=== PATIENT | female | born 1950 | race Caucasian/White ===

== ENCOUNTER 2017-06-30 21:58 | Emergency (ER) | payer OTHER ==
[~2017-06-30] VITALS: Ht 154.9 cm; Wt 72.3 kg
[~2017-06-30 21:58] MED LIST: ADVAIR HFA120 INHALA IH; ASPIR-LOW81 MG PO; ASPIRIN325 MG PO; ASPIRIN81 M1 PO; CIPROFLOXACIN500 M1 PO; CLEOCIN150 MG PO; COUMADIN,JANTOVE5 MG PO; COUMADIN5 MG PO; DYAZIDE, MA1 CAPSULE PO; FOLBIC RF TABL1 EACH PO; GLIMEPIRIDE1 MG PO; HCTZ/TRIAMTERENE; LASIX20 MG PO; LEVAQUIN750 MG PO; LISINOPRIL20 MG PO; LOPRESSOR100 M1 PO; Lasix PO; METOPROLOL TAR100 MG PO; METOPROLOL TART25 MG PO; MUCINEX600 MG PO; NICOTINE PATCH1 EAC2 TD; NITROSTAT0.4 MG SL; Nitrostat,NitroQuick SL; PAXIL2 MG/ML PO; PAXIL20 MG PO; PLAVIX75 MG PO; PRAVASTATIN SOD20 MG PO; PRAVASTATIN SOD40 MG PO; SIMVASTATIN20 MG PO; SPIRIVA RESPIMAT4 GM IH; TENORMIN100 MG PO; VITAMIN B; VITAMIN B CO1 TABLET PO; VITAMIN B12; Xanax PO; ZESTRIL2.5 MG PO; [UNRECOGNIZED DRUG - OTHER] PO
[2017-06-30] MEDS ORDERED: ELIMITE 5% CREA60 GM TP (23:14)
[2017-06-30] MEDS ORDERED: CLEOCIN150 MG PO (23:14)
[2017-06-30] MEDS ORDERED: RID COMPLETE 11 EACH TP (23:14)
[2017-06-30] MEDS ORDERED: ATARAX,VISTARIL25 MG PO (23:15)
[2017-06-30 23:34] VITALS: BP 133/79
== END 2017-06-30 23:35 | disposition home or self-care (01) ==
LOC: EME 21:58 → RME 21:58
DX: B86 Scabies (principal); B85.0 Pediculosis due to Pediculus humanus capitis; R68.83 Chills (without fever); Z88.0 Allergy status to penicillin; F17.200 Nicotine dependence, unspecified, uncomplicated
CPT/HCPCS: 99281; 99283; Q0177

== ENCOUNTER 2017-09-28 12:35 | Inpatient (IN) | payer OTHER ==
[~2017-09-28] VITALS: Ht 154.9 cm; Wt 73.4 kg
[~2017-09-28 12:35] MED LIST changes: +ATARAX,VISTARIL25 MG PO; +ELIMITE 5% CREA60 GM TP; +RID COMPLETE 11 EACH TP
[2017-09-28 14:29] LABS: BASOPHIL COUNT 0.1 K/uL (0-0.1); EOSINOPHIL (%) 3.9 % (0-5); EOSINOPHIL COUNT 0.2 K/uL (0-0.3); HEMATOCRIT 35.7 % (36.0-46.0); IMMATURE GRANULOCYTE (%) 0.4 % (0.0-0.7); INSTRUMENT ABS NEUTROPHIL CT 3.3 K/uL; LYMPHOCYTE COUNT 0.7 K/uL (1.0-2.8); MCH 28.4 PG (29.0-34.0); MCHC 31.9 G/DL (30.0-36.0); MCV 88.8 FL (83-99); MEAN PLAT.VOLUME 10.5 uM^3 (9.5-12.4); MONOCYTE (%) 7.9 % (3-12); MONOCYTE COUNT 0.4 K/uL (0-0.8); NEUTROPHIL (%) 71.2 % (45-76); NEUTROPHIL COUNT 3.3 K/uL (1.8-6.4); PLATELET COUNT 194 K/uL (156-360); RBC DIS.WIDTH-CV 15.7 % (11.8-14.6); RBC DIS.WIDTH-SD 51.4 % (39-53); RED BLOOD COUNT 4.02 M/uL (3.80-5.20); WHITE BLOOD COUNT 4.6 K/uL (4.1-10.2)
[2017-09-28 14:38] LABS: CHLORIDE 109 mEq/L (99-109); POTASSIUM 3.5 mEq/L (3.7-5.4); SODIUM 145 mEq/L (136-147)
[2017-09-28 14:39] LABS: INTER. NORMALIZED RATIO 1.8; MAGNESIUM 1.2 mg/dL (1.3-2.7); PROTHROMBIN TIME 20.4 SEC (10.2-12.9)
[2017-09-28 14:41] LABS: GLUCOSE 105 mg/dL (70-99)
[2017-09-28 14:42] LABS: ANION GAP 11 MEQ/L (2-14); TOTAL BILIRUBIN 0.9 mg/dL (0.0-1.0)
[2017-09-28 14:44] LABS: ALKALINE PHOSPHATASE 55 IU/L (3-129); GFR ESTIMATE (CALCULATED) > 59 mL/min/
[2017-09-28 14:45] LABS: UREA NITROGEN (BUN) 17 mg/dL (9-23)
[2017-09-28 14:50] LABS: TROP-I INTERPRETATION NEGATIVE; TROPONIN-I < 0.01 ng/mL (0.0-0.30)
[2017-09-28] MEDS ORDERED: SPIRIVA RESPIMAT4 GM IH (17:02)
[2017-09-28] MEDS ORDERED: ADVAIR HFA120 INHALA IH (17:03)
[2017-09-28] MEDS ORDERED: DYAZIDE, MA1 CAPSULE PO (17:11)
[2017-09-28] MEDS ORDERED: IRON325 M1 PO (17:14)
[2017-09-28] MEDS ORDERED: LOPRESSOR50 MG PO (17:19)
[2017-09-28 17:23] LABS: ADD MIUA? YES; BILIRUBIN NEGATIVE; BLOOD NEGATIVE; COLOR AMBER ((YELLOW)); GLUCOSE (STRIP) NEGATIVE; KETONES 5; LEUKOCYTES NEGATIVE; NITRITE NEGATIVE; PROTEIN (STRIP) 30; SPECIFIC GRAVITY 1.019 (1.000-1.030)
[2017-09-28 17:39] LABS: BACTERIA RARE /HPF; EPITHELIAL CELLS 1+ /HPF; MUCUS TRACE /LPF; RED BLOOD CELLS 0-5 /HPF (0-5); UCUL ADDED? NO; WHITE BLOOD CELLS 0-5 /HPF (0-5)
[2017-09-28 20:45] VITALS: BP 167/78
== END 2017-09-29 04:58 | disposition left against medical advice (07) | DRG 309 ==
LOC: EME 12:35 → EDOF 15:57 → ENRESERV 15:58 → 4EAST 19:55
PROVIDERS: Emergency Medicine
DX: I48.2 Chronic atrial fibrillation (principal); R00.0 Tachycardia, unspecified; Z91.14 Patient's other noncompliance with medication regimen; R45.851 Suicidal ideations; I12.9 Hypertensive chronic kidney disease with stage 1 through stage 4 chronic kidney disease, or unspecified chronic kidney disease; E11.22 Type 2 diabetes mellitus with diabetic chronic kidney disease; N18.3 Chronic kidney disease, stage 3 (moderate); I25.10 Atherosclerotic heart disease of native coronary artery without angina pectoris; J43.9 Emphysema, unspecified; R29.6 Repeated falls; M25.512 Pain in left shoulder; M25.551 Pain in right hip; M25.552 Pain in left hip; M79.631 Pain in right forearm; R55 Syncope and collapse; D64.9 Anemia, unspecified; F17.210 Nicotine dependence, cigarettes, uncomplicated; E78.00 Pure hypercholesterolemia, unspecified; I25.2 Old myocardial infarction; Z86.73 Personal history of transient ischemic attack (TIA), and cerebral infarction without residual deficits; F32.9 Major depressive disorder, single episode, unspecified; Z79.01 Long term (current) use of anticoagulants; Z91.81 History of falling; Z95.5 Presence of coronary angioplasty implant and graft
CPT/HCPCS: 71020; 72192; 73030; 73090; 80048; 80053; 81003; 83735; 84484; 85025; 85027; 85610; 93005; 93880; 99281; 99283

== ENCOUNTER 2017-10-03 16:46 | Emergency (ER) | payer OTHER ==
[~2017-10-03] VITALS: Ht 154.9 cm; Wt 71.6 kg
[~2017-10-03 16:46] MED LIST changes: +IRON325 M1 PO; +LOPRESSOR50 MG PO
[2017-10-03 17:28] LABS: HEMATOCRIT 37.9 % (36.0-46.0); MCH 28.6 PG (29.0-34.0); MCHC 31.9 G/DL (30.0-36.0); MCV 89.6 FL (83-99); MEAN PLAT.VOLUME 10.6 uM^3 (9.5-12.4); PLATELET COUNT 220 K/uL (156-360); RBC DIS.WIDTH-CV 15.5 % (11.8-14.6); RBC DIS.WIDTH-SD 51.4 % (39-53); RED BLOOD COUNT 4.23 M/uL (3.80-5.20); WHITE BLOOD COUNT 7.5 K/uL (4.1-10.2)
[2017-10-03 17:36] LABS: CHLORIDE 101 mEq/L (99-109); POTASSIUM 3.3 mEq/L (3.7-5.4); SODIUM 142 mEq/L (136-147)
[2017-10-03 17:37] LABS: GLUCOSE 286 mg/dL (70-99)
[2017-10-03 17:39] LABS: ANION GAP 15 MEQ/L (2-14)
[2017-10-03 17:41] LABS: GFR ESTIMATE (CALCULATED) 48 mL/min/
[2017-10-03 17:42] LABS: UREA NITROGEN (BUN) 15 mg/dL (9-23)
[2017-10-03 17:49] LABS: TROP-I INTERPRETATION NEGATIVE; TROPONIN-I 0.02 ng/mL (0.0-0.30)
[2017-10-03 20:10] VITALS: BP 172/124
== END 2017-10-03 20:20 | disposition home or self-care (01) ==
LOC: EME 16:46
DX: S20.212A Contusion of left front wall of thorax, initial encounter (principal); S61.412A Laceration without foreign body of left hand, initial encounter; S30.1XXA Contusion of abdominal wall, initial encounter; Y04.0XXA Assault by unarmed brawl or fight, initial encounter; Y07.499 Other family member, perpetrator of maltreatment and neglect; I48.91 Unspecified atrial fibrillation; R60.0 Localized edema; Z91.14 Patient's other noncompliance with medication regimen; I12.9 Hypertensive chronic kidney disease with stage 1 through stage 4 chronic kidney disease, or unspecified chronic kidney disease; E11.22 Type 2 diabetes mellitus with diabetic chronic kidney disease; N18.9 Chronic kidney disease, unspecified; Z79.01 Long term (current) use of anticoagulants; Z79.82 Long term (current) use of aspirin; Z79.84 Long term (current) use of oral hypoglycemic drugs; J44.9 Chronic obstructive pulmonary disease, unspecified; Z95.5 Presence of coronary angioplasty implant and graft; Z28.21 Immunization not carried out because of patient refusal; F17.200 Nicotine dependence, unspecified, uncomplicated
CPT/HCPCS: 71010; 71020; 71100; 80048; 83880; 84484; 85027; 93005; 99281; 99284

== ENCOUNTER 2017-10-11 11:05 | Emergency (ER) | payer OTHER | END 2017-10-11 11:15 | disposition left against medical advice (07) | LOC: EME 11:05 | DX: M25.559 Pain in unspecified hip (principal); Z53.21 Procedure and treatment not carried out due to patient leaving prior to being seen by health care provider ==

== ENCOUNTER 2018-03-30 09:12 | Emergency (ER) | payer OTHER ==
[~2018-03-30] VITALS: Ht 157.5 cm; Wt 74.8 kg
[2018-03-30 09:59] LABS: HEMATOCRIT 39.7 % (36.0-46.0); HEMOGLOBIN 13.1 G/DL (11.9-15.5); MCH 29.4 PG (29.0-34.0); PLATELET COUNT 212 K/uL (156-360); RBC DIS.WIDTH-CV 14.4 % (11.8-14.6); RBC DIS.WIDTH-SD 46.7 % (39-53); RED BLOOD COUNT 4.46 M/uL (3.80-5.20); WHITE BLOOD COUNT 7.3 K/uL (4.1-10.2)
[2018-03-30 10:05] LABS: INTER. NORMALIZED RATIO 1.8
[2018-03-30 10:14] LABS: CHLORIDE 103 mEq/L (99-109); POTASSIUM 4.4 mEq/L (3.7-5.4); SODIUM 141 mEq/L (136-147)
[2018-03-30 10:16] LABS: GLUCOSE 186 mg/dL (70-99)
[2018-03-30 10:20] LABS: CREATININE 1.2 mg/dL (0.6-1.3); GFR ESTIMATE (CALCULATED) 48 mL/min/; TROP-I INTERPRETATION NEGATIVE; TROPONIN-I < 0.01 ng/mL (0.0-0.30)
[2018-03-30 10:21] LABS: UREA NITROGEN (BUN) 18 mg/dL (9-23)
[2018-03-30 10:30] VITALS: BP 183/130
[2018-03-30] MEDS ORDERED: DYAZIDE, MA1 CAPSULE PO (10:42)
[2018-03-30] MEDS ORDERED: ZITHROMAX Z-PA250 MG PO (10:42)
[2018-03-30] MEDS ORDERED: LISINOPRIL20 MG PO (10:42)
== END 2018-03-30 11:24 | disposition home or self-care (01) ==
LOC: EME 09:12
PROVIDERS: Emergency Medicine
DX: J40 Bronchitis, not specified as acute or chronic (principal); I12.9 Hypertensive chronic kidney disease with stage 1 through stage 4 chronic kidney disease, or unspecified chronic kidney disease; E11.22 Type 2 diabetes mellitus with diabetic chronic kidney disease; N18.9 Chronic kidney disease, unspecified; R60.0 Localized edema; R68.84 Jaw pain; M54.2 Cervicalgia; J44.9 Chronic obstructive pulmonary disease, unspecified; I48.91 Unspecified atrial fibrillation; I25.2 Old myocardial infarction; Z95.5 Presence of coronary angioplasty implant and graft; Z86.73 Personal history of transient ischemic attack (TIA), and cerebral infarction without residual deficits; Z79.01 Long term (current) use of anticoagulants; Z79.82 Long term (current) use of aspirin; Z79.84 Long term (current) use of oral hypoglycemic drugs; Z88.0 Allergy status to penicillin; F17.200 Nicotine dependence, unspecified, uncomplicated; Z91.19 Patient's noncompliance with other medical treatment and regimen
CPT/HCPCS: 71046; 80048; 83880; 84484; 85027; 85610; 93005; 99281; 99285